=== PATIENT | male | born 1980 | race Caucasian/White ===

== ENCOUNTER 2016-06-25 16:10 | Emergency (ER) | payer OTHER ==
--- NOTE | ~2016-06-25 | EKG ---
PATIENT: GRACE WAGONER UNIT #: [id number] Ventricular Rate: 78 BPM Atrial Rate: 78 BPM P-R Interval: 156 ms QRS Duration: 100 ms Q-T Interval: 380 ms QTC Calculation(Bezet): 433 ms P Halma: 64 degrees Calculated R Halma: 67 degrees Calculated T Halma: 44 degrees Diagnosis Line: Normal sinus rhythm Diagnosis Line: Normal ECG Diagnosis Line: When compared with ECG of 05-DEC-2010 12:34, Diagnosis Line: No significant change was found Diagnosis Line: Confirmed by MOOKIE YEE MD ([id number]) on Diagnosis Line: 06/26/2016 11:51:02 AM INTERPRETING KRISTINA CRUZ
--- NOTE | ~2016-06-25 | CR72 ---
[facility] A Service of [facility] & [facility] RADIOLOGY TEXT RESULTS PATIENT: GRACE WAGONER LOCATION: [facility] : [birth year] UNIT #: [id number] AGE: [address]: Marcello Hutchinson MD SEX: M ORDER DR: [id number] [facility] [address] [place], [place] [address] [id number] MR#: [id number] Acc #: [id number] NAME: GRACE WAGONER : 1980 SEX: M STUDY DATE/TIME: 06/25/2016 15:31 UNIT: [facility] ROOM: STUDY DESCRIPTION: CR Chest Single View Portable Attending Physician: Marcello Hutchinson M.D. Ordering Physician: Marcello Hutchinson M.D. Primary Care Physician: Primary Care Physician No MEDICAL IMAGING REPORT This report is preliminary unless electronic signature is present EXAM Single portable AP view of the chest performed on 06/25/2016 at 1531 hours. HISTORY 35-year-old male with chest pain. FINDINGS In comparison to the previous exam of 01/08/2014, there has been no change in appearance of the chest. The heart is not enlarged. The lungs are clear. No pleural effusion or pneumothorax is identified. IMPRESSION Stable chest with no acute pulmonary disease or cardiac enlargement. Dictated by... Jack Echavarria M.D. THIS IS AN ELECTRONICALLY VERIFIED REPORT Jack Echavarria M.D. at 06/26/2016 5:16 PM RP/luiz TD: 06/25/2016 21:17 JOB #: [id number] MEDICAL IMAGING REPORT COPY
[2016-06-25 15:32] LABS: BASOPHIL# 0.1 X10e3 (0-0.3); BASOPHIL% 1.3 % (0-2.5); EOSINOPHIL# 0.1 X10e3 (0-0.7); EOSINOPHIL% 1.6 % (0.0-7.0); HEMOGLOBIN 15.6 gm/dL (13.0-16.0); LYMPHOCYTE# 2.4 X10e3 (1.0-3.5); LYMPHOCYTE% 30.1 % (17.0-45.0); MEAN CELL VOLUME 90.7 FL (83-96); MEAN CORPUSCULAR HEMOGLOBIN 30.1 PG (28-34); MEAN CORPUSCULAR HGB CONC 33.1 g/dL (30-36); MEAN PLATELET VOLUME 9.6 FL (6.5-11.5); MONOCYTE# 0.7 X10e3 (0-1.0); MONOCYTE% 8.7 % (3.0-12.0); NEUTROPHIL# 4.6 X10e3 (1.5-7.1); NEUTROPHIL% 58.3 % (40-75); PLATELET COUNT 164 X10e3 (140-420); RED BLOOD COUNT 5.18 X10e (3.90-5.60)
[2016-06-25 15:36] LABS: DIFF IND NO
[2016-06-25 16:01] LABS: POC - CKMB 1.2 ng/mL (0.0-7.9)
[2016-06-25 16:02] LABS: POC - TROPONIN <0.05 ng/mL (<=0.05)
[~2016-06-25 16:10] MED LIST: ALBUTEROL17 GM INH; AUGMENTIN PO; CIPRO PO; IBUPROFEN PO; PHENERGAN VC W120 M1 PO; PHENERGAN W/CO120 ML PO; PREVACID PO; TYLOX 5-500 CA1 EACH PO; ZITHROMAX PO
[2016-06-25 16:13] LABS: ALBUMIN SERUM 4.6 g/dL (3.5-5.0); ALKALINE PHOSPHATASE 43 U/L (32-92); ALT (SGPT) 23 U/L (10-40); AST (SGOT) 21 U/L (10-42); BILIRUBIN, DIRECT 0.1 mg/dL (0.0-0.2); BILIRUBIN,INDIRECT 0.5 mg/dL (0.0-0.9); BILIRUBIN,TOTAL 0.6 mg/dL (0.2-2.0); BLOOD UREA NITROGEN 14 mg/dL (9-23); BUN/CREATININE RATIO 23.33; CALCIUM SERUM 9.1 mg/dL (8.4-10.2); CARBON DIOXIDE 25 mmol/L (22-31); CHLORIDE 108 mmol/L (100-111); CREATININE SERUM 0.6 mg/dL (0.6-1.4); GLOM FILT RATE Estimated ABOVE60 mL/min (>60); GLUCOSE FASTING 93 mg/dL (70-110); POTASSIUM 4.1 mmol/L (3.5-5.1); PROTEIN TOTAL SERUM 7.4 g/dL (6.0-8.3); SODIUM 141 mmol/L (135-145)
[2016-06-25 17:13] LABS: POC - CKMB <1.0 ng/mL (0.0-7.9); POC - TROPONIN <0.05 ng/mL (<=0.05)
== END 2016-06-25 18:46 | disposition home or self-care (01) ==
LOC: CED 16:10
PROVIDERS: Emergency Medicine
DX: F41.9 Anxiety disorder, unspecified (principal); R07.9 Chest pain, unspecified; F17.210 Nicotine dependence, cigarettes, uncomplicated
CPT/HCPCS: 36415; 71010; 80048; 80076; 82553; 84484; 85025; 93005; 99283